=== PATIENT | male | born 1980 | race Two or more races ===

== ENCOUNTER 2016-09-06 09:02 | Emergency (ER) | payer SELFPAY ==
[~2016-09-06] VITALS: Ht 180.3 cm; Wt 102.1 kg
[2016-09-06 09:18] VITALS: BP 166/94
[2016-09-06] MEDS ORDERED: Morphine Sulfate 4mg/ml Inj IVP ONE ×2 (09:30→10:15)
[2016-09-06 09:55] LABS: BASOPHILS % (AUTO) 0.8 % (0.0-2.0); EOSINOPHILS % (AUTO) 0.6 % (0.0-3.0); LYMPHOCYTES % (AUTO) 27.7 % (20.0-45.0); MEAN CORPUSCULAR HEMOGLOBIN 31.4 PG (27.0-31.0); MEAN CORPUSCULAR HGB CONC 35.1 G/DL (32.0-36.0); MEAN CORPUSCULAR VOLUME 89 FL (80-99); MONOCYTES % (AUTO) 6.2 % (1.0-10.0); NEUTROPHILS % (AUTO) 64.7 % (45.0-75.0); PLATELET COUNT 241 K/UL (150-450); RED CELL DISTRIBUTION WIDTH 10.9 % (11.6-14.8); WHITE BLOOD COUNT 10.4 K/UL (4.8-10.8)
[2016-09-06 10:00] LABS: APPEARANCE,URINE CLEAR; KETONES,URINE NEGATIVE (NEGATIVE); LEUKOCYTE ESTERASE ,URINE 1+ (NEGATIVE); NITRITE,URINE NEGATIVE (NEGATIVE); PH,URINE 5 (4.5-8.0); PROTEIN,URINE 2+ (NEGATIVE); UROBILINOGEN,URINE NORMAL MG/DL (0.0-1.0)
[2016-09-06 10:09] LABS: ALANINE AMINOTRANSFERASE 36 U/L (3-41); ALBUMIN/GLOBULIN RATIO 1.1 (1.0-2.7); ANION GAP 22 (5-15); ASPARTATE AMINO TRANSFERASE 29 U/L (5-40); CALCIUM 9.5 mg/dL (8.6-10.2); CARBON DIOXIDE 20 mEQ/L (20-30); CHLORIDE 93 mEQ/L (98-107); GLOMERULAR FILTRATION RATE > 60 mL/min (>60); HEMOLYSIS 31; LIPASE 26 U/L (< 60); POTASSIUM 3.7 mEQ/L (3.4-4.9); SODIUM 135 mEQ/L (135-145); TOTAL PROTEIN 8.1 g/dL (6.6-8.7)
[2016-09-06 10:11] LABS: BACTERIA,URINE FEW /HPF; RBC,URINE 30-40 /HPF (0 - 0); SQUAMOUS EPITHELIAL CELL,UR OCCASIONAL /LPF (NONE/OCC)
[2016-09-06 10:12] LABS: MUCUS,URINE FEW /LPF (NONE/OCC)
--- NOTE | 2016-09-06 10:20 | Diagnostic Imaging Report ---
Indication: Flank pain Technique: Continuous helical scanning was performed without any contrast material from the diaphragms through the pelvis . Axial, sagittal, and coronal images were generated. Dose: Total Dose Length Product - DLP [address] Dose Index - CTDIvol(s) 17.93, 19.51 mGy. Comparison: None Findings: There is some prominent soft tissue in the anterior mediastinum only partially visualized. The liver is low density. The gallbladder is normal. The spleen is unremarkable. The pancreas is normal. There are tiny nonobstructive calculi in the kidneys bilaterally. A 6 mm obstructing calculus is noted in the proximal left ureter. Mild left hydronephrosis is noted. There is no right hydronephrosis. The aorta and inferior vena cava are normal caliber. The retroperitoneum is free of significant adenopathy. The appendix is normal. The bowel is unremarkable. Calcified vas deferens bilaterally is noted. The bladder is unremarkable but collapsed. Prostate and seminal vesicles are normal. Impression: Mildly obstructing 6 mm calculus in the proximal left ureter. Tiny nonobstructive renal calculi bilaterally. Fatty liver. Calcified vas deferens bilaterally. Prominent anterior mediastinal soft tissue. This may resent residual thymus. The CT scanner at [facility] is accredited by the [employer] and the scans are performed using protocols designed to limit radiation exposure to as low as reasonably achievable to attain images of sufficient resolution adequate for diagnostic evaluation.
[2016-09-06] MEDS ORDERED: HYDROmorphone 1mg/ml Carpuject IVP ONE (10:45)
[2016-09-06] MEDS ORDERED: TAMSULOSIN HCL0.4 MG ORAL (12:45)
[2016-09-06] MEDS ORDERED: ZOFRAN ODT4 MG ORAL (12:45)
[2016-09-06] MEDS ORDERED: NORCO 5-325 TA1 EACH ORAL (12:45)
[2016-09-06 13:01] VITALS: BP 141/85
[2016-09-06 13:02] VITALS: BP 141/85
--- NOTE | 2016-09-09 06:50 | Emergency Room Report ---
History of Present Illness General Chief Complaint: Pain Source: Patient Present Illness HPI 35-year-old male presents ED complaining of left-sided groin pain times one day. Patient states he has a history of kidney stones and states this feels like the same. Pain is a 10 out of 10, sharp, intermittent, radiating towards the left groin. Notes hematuria. Denies nausea and vomiting. Denies fevers or chills. Patient states he tried drinking water which normally helps him in the past but states this is worse. No other aggravating or relieving factors. Denies any other associated symptoms Allergies: Uncoded Allergies: VOVERAN (Allergy, Unknown, 09/06/16) Patient History Past Medical History: other - kidney stone Past Surgical History: none Pertinent Family History: none Social History: Denies: alcohol use, drug use, smoking Immunizations: UTD Reviewed Nursing Documentation: PMH: Agreed, PSxH: Agreed Nursing Documentation-PMH Past Medical History: No History, Except For Hx Gastrointestinal Problems: Yes - KIDNEY STONE Review of Systems All Other Systems: negative except mentioned in HPI Physical Exam Vital Signs Date Time Temp Pulse Resp B/P Pulse Ox O2 Delivery O2 Flow Rate FiO2 09/06/16 09:14 97.5 66 20 166/94 96 Room Air Sp02 EP Interpretation: reviewed, normal General Appearance: alert, GCS 15, non-toxic, mild distress Head: normocephalic Eyes: bilateral eye PERRL, bilateral eye normal inspection ENT: normal ENT inspection Neck: normal inspection Respiratory: chest non-tender, lungs clear, normal breath sounds, speaking full sentences Cardiovascular #1: regular rate, rhythm, no edema Gastrointestinal: normal bowel sounds, soft, non-distended, no guarding, no rebound, other - LLQ Rectal: deferred Genitourinary: no CVA tenderness Musculoskeletal: normal inspection Neurologic: alert, oriented x3, responsive, motor strength/tone normal, sensory intact, speech normal Psychiatric: normal inspection Skin: normal inspection Lymphatic: normal inspection Medical Decision Making Diagnostic Impression: Primary Impression: Kidney stone ER Course Hospital Course 35-year-old male presents ED complaining of left sided abdominal pain. History of kidney stone Differential diagnosis includes-appendicitis, cholecystitis, kidney stone, pyelonephritis Clinical course Patient placed on stretcher. After initial history and physical I ordered labs , IV fluids, pain medications and CT scan Labs - no leukocytosis, electrolytes okay, UA with hematuria but no signs of infection CT scan shows 6mm stone in proximal L ureter with hydronephrosis Kidney stone described as obstructing on CT. However patient has no leukocytosis, no signs of infection, no perinephric stranding, normal kidney function. Patient required multiple rounds of pain control; I offered patient option for admission but patient declined stating he wishes to be discharged. Will return to ED if symptoms do not improve I feel this is a highly complex case requiring extensive working including EKG/ Rhythm strip, Xray/CT/US, Blood/urine lab work, repeat exams while in ED, and administration of strong opiates/narcotics for pain control, admission to hospital or close patient follow up. Diagnosis - kidney stone Stable and discharged to home with Oswaldo Eubanks. Followup with PMD. Return to ED if symptoms recur or worsen Labs Test 09/06/16 09:12 09/06/16 09:30 Urine Color Yellow Urine Appearance Clear Urine pH 5 (4.5-8.0) Urine Specific Strong 1.030 (1.005-1.035) Urine Protein 2+ (NEGATIVE) Urine Glucose (UA) Negative (NEGATIVE) Urine Ketones Negative (NEGATIVE) Urine Occult Blood 5+ (NEGATIVE) Urine Nitrite Negative (NEGATIVE) Urine Bilirubin Negative (NEGATIVE) Urine Urobilinogen Normal MG/DL (0.0-1.0) Urine Leukocyte Esterase 1+ (NEGATIVE) Urine RBC 30-40 /HPF (0 - 0) Urine WBC 2-4 /HPF (0 - 0) Urine Squamous Epithelial Cells Occasional /LPF Urine Bacteria Few /HPF (NONE) Urine Mucus Few /LPF (NONE/OCC) White Blood Count 10.4 K/UL (4.8-10.8) Red Blood Count 5.10 M/UL (4.70-6.10) Hemoglobin 16.0 G/DL (14.2-18.0) Hematocrit 45.6 % (42.0-52.0) Mean Corpuscular Volume 89 FL (80-99) Mean Corpuscular Hemoglobin 31.4 PG (27.0-31.0) Mean Corpuscular Hemoglobin Concent 35.1 G/DL (32.0-36.0) Red Cell Distribution Width 10.9 % (11.6-14.8) Platelet Count 241 K/UL (150-450) Mean Platelet Volume 7.0 FL (6.5-10.1) Neutrophils (%) (Auto) 64.7 % (45.0-75.0) Lymphocytes (%) (Auto) 27.7 % (20.0-45.0) Monocytes (%) (Auto) 6.2 % (1.0-10.0) Eosinophils (%) (Auto) 0.6 % (0.0-3.0) Basophils (%) (Auto) 0.8 % (0.0-2.0) Sodium Level 135 mEQ/L (135-145) Potassium Level 3.7 mEQ/L (3.4-4.9) Chloride Level 93 mEQ/L (98-107) Carbon Dioxide Level 20 mEQ/L (20-30) Anion Gap 22 (5-15) Blood Urea Nitrogen 14 mg/dL (7-23) Creatinine 1.0 mg/dL (0.7-1.2) Estimat Glomerular Filtration Rate > 60 mL/min (>60) Glucose Level 107 mg/dL (74-106) Calcium Level 9.5 mg/dL (8.6-10.2) Total Bilirubin 0.8 mg/dL (0.0-1.2) Aspartate Amino Transf (AST/SGOT) 29 U/L (5-40) Alanine Aminotransferase (ALT/SGPT) 36 U/L (3-41) Alkaline Phosphatase 114 U/L (40-129) Total Protein 8.1 g/dL (6.6-8.7) Albumin 4.4 g/dL (3.5-5.2) Globulin 3.7 g/dL Albumin/Globulin Ratio 1.1 (1.0-2.7) Lipase 26 U/L (< 60) CT/MRI/US Diagnostic Results CT/MRI/US Diagnostic Results : Imaging Test Ordered: CT A/P Impression 6 mm obstructing calculus is noted in the proximal left ureter. Mild left hydronephrosis is noted. Last Vital Signs Date Time Temp Pulse Resp B/P Pulse Ox O2 Delivery O2 Flow Rate FiO2 09/06/16 13:02 97.5 60 20 141/85 97 Room Air Status: improved Disposition: HOME, SELF-CARE Condition: Stable Scripts Tamsulosin Hcl (TAMSULOSIN HCL*) 0.4 Mg Cap.er.24h 0.4 MG ORAL BEDTIME, #10 CAP Prov: JED CLARK M.D. 09/06/16 Ondansetron Odt* (ZOFRAN ODT*) 4 Mg Tab.rapdis 4 MG ORAL Q6H Y for Nausea & Vomiting, #30 TAB 0 Refills Prov: JED CLARK M.D. 09/06/16 Hydrocodone Bit/Acetaminophen 5-325* (NORCO 5-325*) 1 Each Tablet 1 TAB ORAL Q6H Y for For Pain, #20 TAB 0 Refills Prov: JED CLARK M.D. 09/06/16 Patient Instructions: Kidney Stones, [id number] JED CLARK M.D. Sep 09, 2016 06:50
== END 2016-09-06 13:07 | disposition home or self-care (01) ==
LOC: EMR 10:30
DX: N20.0 Calculus of kidney (principal); Z87.442 Personal history of urinary calculi
CPT/HCPCS: 36415; 74176; 80053; 81003; 83690; 85025; 96374; 96375; 99284; J1170; J2270; J2405; J7040